=== PATIENT | female | born 1950 | race Caucasian/White ===

== ENCOUNTER 2017-01-05 11:53 | Observation (INO) | payer MEDICARE ==
[~2017-01-05] VITALS: Ht 170.2 cm; Wt 99.1 kg
[2017-01-05] VITALS (13 sets, daily range): BP systolic 171–215; BP diastolic 85–110; PULSE 72–89; RESP 13–20; O2SAT 94–98
--- NOTE | 2017-01-05 12:04 | ED.REPORT ---
HPI-Stroke / CVA Jan 05, 2017 ED Provider: The patient is a 66 year old female with history of hypertension and hyperlipidemia, who presents to the emergency department complaining of right upper extremity tingling that began last night around 2099. Her symptoms have continued this morning and she also noticed similar symptoms on the right side of her face. She felt normal yesterday evening around 1999. She was seen by her regular doctor this morning and sent to the emergency department for further evaluation. She has had a headache intermittently over the last several days. Her pain is more noticeable with activity. She denies focal weakness, lower extremity tingling, visual changes, speech changes or confusion. She does not have history of a previous stroke. Her mother has had multiple strokes, her first stroke was at age 41, and her sister had a stroke at age 69. Over the last week she noticed a few episodes of "strong palpitations." She did not notice chest pain. She has chronic diarrhea and intermittent fevers but denies any new recent illnesses. Nursing Notes Stated Complaint: STROKE SYMPTOMS Chief Complaint: Neuro Symptoms/ Deficits Nursing Notes Reviewed: Yes Allergies: Coded Allergies: doxycycline (Verified Allergy, Severe, "muscle issues, severe stomach bleeding", 01/05/17) [place] Seed (Verified Adverse Reaction, Severe, ANY SEEDS-BOWEL BLEEDING, 01/05/17) caffeine (Verified Adverse Reaction, Severe, I MAY PASS OUT; PALPITATIONS , 01/05/17) egg (Verified Adverse Reaction, Severe, UPSET STOMACH, DIARRHEA, BLEEDING , 01/05/17) nut - unspecified (Verified Adverse Reaction, Severe, BLEEDING, 01/05/17) pepper (Verified Adverse Reaction, Intermediate, BLACK PEPPER - INTERNAL BLEEDING, 01/05/17) Scheduled Levothyroxine (Levothyroxine) 200 Mcg Tablet 200 MCG PO HS (Reported) General Time Seen by Provider: 12:05 Chief Complaint Numbness (tingling) Face right, Arm right Hx Obtained From: Patient, Spouse Arrived By: Walk-in Time last known well Last night around 1999 Sudden in Onset?: Yes Symptom Duration: Since onset Progression Since Onset: Constant Severity: Current: No pain currently Severity: Maximum: No pain Pertinent Negative: Pt denies other symptoms Recent Healthcare: No recent hospitalization, Recent doctor visit Similar Sx Previous: No Risk Factors )( TPA Administration/Criteria Stroke Thrombolytic Therapy : TPA Considered: Yes TPA Administered Intravenously: No, exclusion criteria (minimal symptoms and last known normal was last night around 1999. ) NIH Stroke Scale Level of Consciousness: Alert and responsive (0) Ask Month & Age: Both questions right (0) Open/Close Eyes/Hand Environmental Quality Analyst: Performs both tasks (0) Horizontal EO Movements: None (0) Visual Garcia: No visual loss (0) Facial Palsy: Normal symmetry (0) Right Arm Motor Drift (10s): No drift 10 sec (0) Left Arm Motor Drift (10s): No drift 10 sec (0) Right Leg Motor Drift (5s): No drift 5 sec (0) Left Leg Motor Drift (5s): No drift 5 sec (0) Limb Ataxia FNF/Heel-Sinha: No ataxia (0) Sensation (Arms/Legs/Face): Pinprick less sharp (1) Language Aphasia: No aphasia, normal (0) Dysarthria: No dysarthria, normal (0) Extinction/Inattention: No exctinct/inattent (0) NIHSS Score: 1 Time NIHSS Performed: 12:09 Date NIHSS Performed: Jan 05, 2017 Past Medical History Past Medical History Diverticulitis s/p bowel resection IBS Reports: Hyperlipidemia, Hypertension, Denies: Diabetes mellitus, Stroke Past Surgical History Bowel resection Family History Mother has had multiple strokes, first stroke was at age 40. Sister had a stroke at age 69. Smoking History Never Smoker Social History Other Social History: Good social support, , Local resident Ambulatory Status Independent Review of Systems Constitutional: Reports: Fever (intermittent), Denies: Chills Ears / Nose / Throat: Denies: Nasal congestion Respiratory: Denies: Non-productive cough Cardiovascular: Reports: Palpitations GI: Reports: Diarrhea (chronic), Denies: Vomiting Skin: Denies Rash Neurologic: Reports: Headache, Numbness (tingling ), Denies: Confusion, Focal weakness, Problem walking, Slurred speech, Unable to speak, Vision change Complete sys rev & neg: except as marked. Physical Exam Initial Vital Signs Vital Signs (First) Date Time Temp Pulse Resp B/P Pulse Ox O2 Delivery O2 Flow Rate FiO2 01/05/17 11:57 36.8 72 20 214/94 97 Room Air Initial VS: Reviewed ENT: Mucous membranes moist, Conjunctiva normal, No scleral icterus Abdomen / GI: Soft, Non-tender, No guarding, No rebound, No distention Lymphatic: No lymphadenopathy Extremities: Vascular intact, Neuro intact, No swelling, No tenderness Skin: Warm, Dry, No cyanosis Psychiatric: Mood/affect normal, Behavior normal, Normal thought content General/Constitutional: Awake, Alert Head / Eyes: Atraumatic, Normocephalic, PERRL, EOMI Neck: Supple, Full range of motion, No swelling, Non-tender, No carotid bruit Respiratory / Chest: Atraumatic, Breath sounds NL, Breath sounds = bilat, No respiratory distress, No rales, No rhonchi, No wheezing Cardiovascular: Heart rate NL, Regular rhythm, Heart sounds NL, No murmurs, No rubs, Peripheral circulation NL Neurologic: Oriented X3, Speech NL, No motor deficits, CN II - XII intact, Cerebellar NL, Memory NL, Gait NL Decreased sensation localized to upper lip on the right. Her tongue deviates to the left. Interpretation & Diagnostics Lab Results Interpretation Result Diagram: 01/05/17 1230 01/05/17 1230 Test 01/05/17 12:30 01/05/17 12:42 White Blood Count 6.0th/mm3 (3.8-10.1) Red Blood Count 4.95mil/mm3 (3.90-5.20) Hemoglobin 14.8g/dL (12.0-15.6) Hematocrit 43.7% (35.0-46.0) Mean Corpuscular Volume 88.3fL (81-100) Mean Corpuscular Hemoglobin 29.9pg (27.0-35.0) Mean Corpuscular Hemoglobin Concent 33.9% (32.0-37.0) Red Cell Distribution Width 12.8% (12.3-15.4) Platelet Count 244bil/L (150-400) Neutrophils (%) (Auto) 58.6% (40-74) Lymphocytes (%) (Auto) 29.3% (14-46) Monocytes (%) (Auto) 9.3% (4-12) Eosinophils (%) (Auto) 1.8% (0-5) Basophils (%) (Auto) 0.7% (0-3) Prothrombin Time 10.5sec (8.1-12.5) Prothromb Time International Ratio 0.98ratio Sodium Level 138mEq/L (134-144) Potassium Level 4.1mEq/L (3.5-5.2) Chloride Level 100mEq/L (97-108) Carbon Dioxide Level 23mmol/L (18-29) Blood Urea Nitrogen 14mg/dL (8-27) Creatinine 0.66mg/dL (0.57-1.00) Estimat Glomerular Filtration Rate 129mL/min (>59) Glucose Level 97mg/dL (60-99) Calcium Level 8.8mg/dL (8.5-10.1) Total Bilirubin 0.3mg/dL (0.0-1.2) Aspartate Amino Transf (AST/SGOT) 19U/L (0-50) Alanine Aminotransferase (ALT/SGPT) 23U/L (0-32) Alkaline Phosphatase 85U/L (25-165) Total Protein 7.2g/dL (6.4-8.4) Albumin 4.3g/dL (3.4-5.0) Urine Color Straw (YELLOW) Urine Appearance Hazy (CLEAR,HAZY) Urine pH 6.5 (5.0-8.0) Urine Specific [place] 1.015 (1.003-1.035) Urine Protein Negativemg/dL (NEG,TRACE) Urine Glucose (UA) Negativemg/dL (NEGATIVE) Urine Ketones Negativemg/dL (NEGATIVE) Urine Occult Blood Trace (NEGATIVE) Urine Nitrite Negative (NEGATIVE) Urine Bilirubin Negative (NEGATIVE) Urine Urobilinogen Normalmg/dL (NORMAL) Urine Leukocyte Esterase Negative (NEGATIVE) Urine RBC 0-2/hpf (0-2) Urine WBC 0-5/hpf (0-5) Urine Epithelial Cells Occasional/hpf (NONE-MOD) Urine Crystals None seen (NONE SEEN) Urine Bacteria Moderate/hpf (NONE-FEW) Urine Hyaline Casts None/lpf (NONE) Urine Granular Casts None seen (NONE SEEN) Urine Waxy Casts None seen (NONE SEEN) Urine Red Blood Cell Casts None seen (NONE SEEN) Urine White Blood Cell Casts None seen (NONE SEEN) Urine Mucus None seen (None Seen) Urine Trichomonas None seen (NONE SEEN) Urine Yeast None (NONE SEEN) Urinalysis Comment None Urine Culture Reflexed Indicated ECG Interpretation Time: 12:29 Interpreted by: ED physician Normal ECG Interpretation: Normal ECG w/ rate of... (70), Normal rate, Normal sinus rhythm, No acute ischemic changes, Normal QRS, Normal axis, Normal intervals, Adequate tracing Rhythm Strip Interpretation : Rhythm Strip Interpretation: Sinus rhythm with a rate of 75 Time: 12:15 CT Head Interpretation IMPRESSION: 1. No acute intracranial process. 2. Mild atrophy and chronic microvascular ischemic changes. Dictated by: Amanda Echevarria M.D. on 01/05/2017 at 13:16 Study: Head CT no contrast Interpretation / Wet Read by: Interpret - Radiologist Re-Eval/Medical Decision Source of Hx: Old records, Family Re-Evaluation/Progress #1: Time of Eval: 12:17 Re-Evaluation/Progress Note: Discussed exam findings, diagnosis, plan for workup and admission. All questions were addressed. Re-Evaluation/Progress #2: Time of Eval: 13:30 Re-Evaluation/Progress Note: Rechecked the patient. Discussed workup results. Re-Evaluation/Progress #3: Time of Eval: 14:37 Re-Evaluation/Progress Note: Rechecked the patient. The tingling on her face has progressed and her tongue is deviated to the left. The tingling on her hand is the same. Consultation : Referral / Consult Name: Estevan Anderson MD Consulted With: Hospitalist Requested Call at: 13:31 Call Returned at: 14:52 Network Project Manager: Will see patient, Agrees with eval, Agrees with plan, Accepts admit Counseled Regarding: Diagnosis, Lab results, Need for admission Patient Discharge & Departure Impression: Primary Impression: Stroke CVA mechanism: unspecified Qualified Code: I63.9 - Cerebral infarction, unspecified Disposition: ADMITTED TO HOSPITAL Discharge Condition All VS Reviewed: Yes Condition: Stable Scribe Attestation Portions of this note were transcribed by Tamie Mejia. I, Dr. Gar personally performed the history, physical exam and medical decision-making; I reviewed and confirmed the accuracy of the information in the transcribed note. Signed by: Anup Kramer, 01/05/2017 and Zachary Chu MD Jan 05, 2017 12:04 Tamie Mejia Jan 05, 2017 12:12
[2017-01-05] MEDS ORDERED: Labetalol 5 mg/mL 4 mL Inj IV PRN (12:20)
[2017-01-05 12:42] LABS: BASOPHILS % (AUTO) 0.7 % (0-3); EOSINOPHILS % (AUTO) 1.8 % (0-5); MONOCYTES % (AUTO) 9.3 % (4-12); Mean Corpuscular Hemoglobin 29.9 pg (27.0-35.0); Mean Corpuscular Volume 88.3 fL (81-100); NEUTROPHILS % (AUTO) 58.6 % (40-74); Platelet Count 244 bil/L (150-400)
[2017-01-05 12:55] LABS: APPEARANCE,URINE HAZY (CLEAR,HAZY); COLOR,URINE STRAW (YELLOW); OCCULT BLOOD,URINE TRACE (NEGATIVE); PH,URINE 6.5 (5.0-8.0); UROBILINOGEN,URINE NORMAL (NORMAL)
--- NOTE | 2017-01-05 13:19 | DRSVH ---
PROCEDURE: CT BRAIN WITHOUT CONTRAST ([id number]) INDICATIONS: Right face numb TECHNIQUE: Noncontrast 4.5 mm thick angled axial sections acquired from the foramen magnum to the vertex, with c oronal reformats. COMPARISON: None. FINDINGS: Image quality: Excellent. CSF spaces: Basal cisterns are patent. No extra-axial fluid collections. Ventricles are normal in size and shape. Brain: No midline shift. No intracranial masses or hemorrhage. Mcnally-white matter interface is norm al. Skull and face: Calvarium and visualized facial bones are intact, without suspicious lesions. Sinuses: Visualized sinuses and mastoids are clear. IMPRESSION: 1. No acute intracranial process. 2. Mild atrophy and chronic microvascular ischemic changes. Dictated by: Amanda Echevarria M.D. on 01/05/2017 at 13:16 Approved by: Amanda Echevarria M.D. on 01/05/2017 at 13:17
[2017-01-05] MEDS ORDERED: hydrALAZINE 20 mg/mL Inj IV ONE ×2 (13:40→14:45)
[2017-01-05] MEDS ORDERED: LEVO200T6 PO (14:19)
[2017-01-05] MEDS ORDERED: Alum-Mag Hydrox-Simeth 30 mL Suspension PO PRN (14:55)
[2017-01-05] MEDS ORDERED: Labetalol 5 mg/mL 4 mL Inj IVPUSH PRN (14:55)
[2017-01-05] MEDS ORDERED: HYDROcodone-APAP 5-325 mg Tablet PO PRN (14:55)
[2017-01-05] MEDS ORDERED: Ondansetron 2 mg/mL 2 mL Inj IV PRN (14:55)
[2017-01-05] MEDS ORDERED: Polyethylene Glycol (PEG) 17 Gm Powder PO PRN (14:55)
[2017-01-05 15:21] LABS: INR 0.98 ratio
[2017-01-05 15:46] LABS: TROPONIN T < 0.010 ug/L (0.0-0.011)
[2017-01-05 15:48] LABS: Magnesium 2.3 mg/dL (1.6-2.6)
--- NOTE | 2017-01-05 16:03 | DRSVH ---
PROCEDURE: MRI STROKE PROTOCOL ([id number]) Pre- and post-contrast brain MRI, non-contrast brain MR angiogram, pre- and postcontrast neck MR dylan ogram INDICATIONS: right face weak, tongue deviation TECHNIQUE: Brain: Noncontrast axial T1 spin echo, axial T2 fast spin echo, sagittal and axial FLAIR, coronal T2 fast spin echo, axial gradient echo, axial diffusion and ADC through the brain. After the administr ation of contrast, axial 3D VIBE of the cranial vasculature and brain. Brain MRA: Non-contrast 3-D time of flight MR angiogram, with multiple xduexjo-kflokwevj-lifhrxbpks (MIP) reformats performed. Neck MRA: Axial and sagittal TruFISP through the neck. Coronal dynamic MR angiogram during administ ration of contrast in the arterial and venous phases, with 3-dimenstional rsdmshd-ecnmjgaqb-cfmzsxbhe n (MIP) reformats constructed from subtraction images. COMPARISON: [facility], CT, CT BRAIN WO CON, 01/05/2017, 12:41. FINDINGS: Image quality: Excellent. BRAIN: CSF spaces: Ventricles are normal in size and shape. Basal cisterns are patent. No extra-axial flu id collections. Brain: No intracranial bleeds or mass effects. There is mild diffuse cervical volume loss. There is a moderate degree of patchy high FLAIR signal within the periventricular and subcortical white matte r. Mcnally-white matter interface is normal. Diffusion weighted images show no acute ischemic insults. Brainstem appears normal. Normal intravascular flow voids are present. No abnormal intracranial en hancement. Skull and face: Calvarial marrow signal is normal. Orbits appear normal. Sinuses: Sinuses are moderate right mastoid fluid. Left mastoid is clear. Sinuses clear. BRAIN MR ANGIOGRAM: Anterior circulation: Intracranial internal carotid arteries are normal in size and enhancement. Th e flow within the paired anterior cerebral arteries is normal and symmetric. The flow within the mid dle cerebral arteries is normal and symmetric. The anterior communicating artery is seen. No stenos es, occlusions, or aneurysms. Posterior circulation: The visualized portions of the vertebral arteries demonstrate normal caliber, and join to form a normal appearing basilar artery. Near origins of the bilateral posterior c erebral arteries. The flow within the posterior cerebral arteries is normal and symmetric. No stenos es, occlusions, or aneurysms. NECK MR ANGIOGRAM: Carotids: Great vessels demonstrate a conventional anatomy as they arise from the aortic arch. The origins of the common carotid arteries appear patent. The calibers and courses of both common caroti d arteries are normal. Mild, roughly 10% origin stenosis involving the right internal carotid artery, which is otherwise patent. Mild, roughly 10% origin stenosis involves the left internal carotid arslan ry, which is otherwise patent. Posterior circulation: The origins of the vertebral arteries appear patent. More superior portions of both vertebral arteries demonstrate normal course and caliber, and join to form a normal appearing basilar artery. Miscellaneous: Subclavian arteries appear patent. Pre-contrast images through the neck show no soft tissue abnormalities. IMPRESSION: BRAIN MRI: 1. No acute process. No recent infarct. 2. Mild cerebral and loss. 3. Moderate white matter FLAIR signal elevation. Differential considerations include small vessel isc hemic disease, diabetes mellitus, vasculitides, and demyelinating disorders such as multiple sclerosi s. BRAIN MR ANGIOGRAM: Negative cerebral MR angiography. NECK MR ANGIOGRAM: 1. Mild bilateral internal carotid artery origin stenoses. 2. Patent bilateral vertebral arteries. The estimate of stenosis included in the report of the imaging study was calculated using the NASCET method Dictated by: Virgie Santoyo M.D. on 01/05/2017 at 15:56 Approved by: Virgie Santoyo M.D. on 01/05/2017 at 16:01
--- NOTE | 2017-01-05 16:30 | PCM.HPMED ---
Subjective Date of Service Jan 05, 2017 Primary Provider: Admitting Physician: Estevan Anderson MD Primary Care Physician: Jeanette Mejia MD Attending Physician: Estevan Anderson MD Chief Complaint: Hand and face numbness History of Present Illness: 66-year-old female with a strong family history of stroke and see ND comes in after she had some hand numbness on the right side beginning around 8:00 last night she attributed it to a new brawn perhaps a musculoskeletal issue. She woke up this morning with it but it was not quite so bad but then she started to notice also the right side of her face she was coming into town with her and they opted to come to the emergency room where stroke code was called. Patient did not get TPA was not indicated, she has hypertension here, hyperlipidemia, she is not tolerated any statin this is been tried. She also has a history of palpitations. She tells me that it has gotten worse this week she has had it worked up extensively in the past with Holter monitors and they never found anything and she is on no medications for it. So now the patient has a headache that has resolved and then when she got some blood pressure medicine I believe was hydralazine the emergency room she had nausea and vomiting to go with it. Prior to that she was feeling fine other than some progressively worsening palpitations have been going on for the last week. She has multiple drug allergies and adverse reactions to medications and therefore really is not on any. She requires brand-name thyroid medication to control her thyroid as it was quite fluctuant in the past. Review of Systems: Gen.: No fevers chills weight loss weight gain Eyes: no visual disturbances or blurring vision HEENT: No nose/throat drainage, no pain in ears or throat, no hearing loss Lymph: No lymph nodes noted Cardiac: No chest pain, orthopnea, PND, palpitations , pedal edema or dyspnea on exertion Pulmonary: no cough, wheezing or bringing up of sputum GI: No anorexia nausea vomiting blood or black in the stool : no dysuria hematuria urinary frequency or decrease in urine output Musculoskeletal: Joint swelling no joint pain no new muscle aches or back pain Neuro: No syncope, seizures no loss of consciousness no new focal weakness, numbness or tingling Psychiatric: New new anxiety insomnia or depression Endocrine: No new heat or cold intolerances polyuria or polydipsia Hematology: No lymphadenopathy or easy bleeding or bruising noted skin: No new rashes, stasis dermatitis Allergies Coded Allergies: doxycycline (Verified Allergy, Severe, "muscle issues, severe stomach bleeding", 01/05/17) [place] Seed (Verified Adverse Reaction, Severe, ANY SEEDS-BOWEL BLEEDING, 01/05/17) caffeine (Verified Adverse Reaction, Severe, I MAY PASS OUT; PALPITATIONS , 01/05/17) egg (Verified Adverse Reaction, Severe, UPSET STOMACH, DIARRHEA, BLEEDING , 01/05/17) nut - unspecified (Verified Adverse Reaction, Severe, BLEEDING, 01/05/17) pepper (Verified Adverse Reaction, Intermediate, BLACK PEPPER - INTERNAL BLEEDING, 01/05/17) Home Medications Levothyroxine (Levothyroxine) 200 Mcg Tablet 200 MCG PO HS (Reported) PMH Hypothyroidism Hx GI bleed "torn up esophagus and stomach "told never to take aspirin or NSAIDs ever again. Hx hyperlipidemia has not tolerated any medication since tried a few Diverticulitis s/p bowel resection IBS Reports: Hyperlipidemia, Hypertension, Denies: Diabetes mellitus, Stroke Past Surgical History Bowel resection status post diverticulosis and GI bleed Hx cholecystectomy Hx appendectomy Hx incisional hernia repair Hx hysterectomy neck Hx breast cyst removed Hx right flank cyst sounds like a lipoma removed from under the skin" very large Numerous bilateral foot procedures Family History-strong family history for CVA and heart disease Mother has had multiple strokes, first stroke was at age 40. Sister had a stroke at age 69. Her father had ND at 42, sister's at 68 and 67 and a brother at age 55 multiple grandparents with MIs Smoking History Never Smoker Social History Other Social History: Good social support, , Local resident Ambulatory Status Independent Social History Hx Alcohol Use: No Hx Substance Use: No Smoking Status: Never Smoker Exam Vital Signs Vital Sign - Last Date Time Temp Pulse Resp B/P Pulse Ox O2 Delivery O2 Flow Rate FiO2 01/05/17 16:19 81 15 171/95 95 01/05/17 16:01 Room Air 01/05/17 11:57 36.8 Exam Gen.- A+ O 3 no apparent distress. Eyes- open conjunctiva clear, pupils equal nonicteric Mouth- oral mucosa moist, no exudate ENT- ears normal, nose normal Neck- supple/trach midline CVS- RRR no murmur or gallop Lungs- CTA GI- NABS/NT soft Musc- moving 4 no obvious deformity Neuro- cranial nerves II through XII intact to gross examination, nonfocal Skin- warm and dry, no rashes/lesions/wounds noted Psych- pleasant and appropriate, Lab and Diagnostics Result Diagram: 01/05/17 1230 01/05/17 1230 X-Rays, CTs and MRIs BRAIN MRI: 1. No acute process. No recent infarct. 2. Mild cerebral and loss. 3. Moderate white matter FLAIR signal elevation. Differential considerations include small vessel ischemic disease, diabetes mellitus, vasculitides, and demyelinating disorders such as multiple sclerosis. BRAIN MR ANGIOGRAM: Negative cerebral MR angiography. NECK MR ANGIOGRAM: 1. Mild bilateral internal carotid artery origin stenoses. 2. Patent bilateral vertebral arteries. The estimate of stenosis included in the report of the imaging study was calculated using the NASCET method Dictated by: Virgie Santoyo M.D. on 01/05/2017 at 15:56 12-lead ECG Normal rate with QTC of [address] segment changes reviewed by me Assessment & Plan 66-year-old female being admitted for CVA/TIA workup #Right facial and hand numbness-MRI shows no acute CVA possible enhancement consistent with MS. Right now hand numbness and right facial numbness are resolving. -Echocardiogram, telemetry, PT/OT/swallow eval all ordered -Patient does not tolerate aspirin so were starting Plavix -Patient has not tolerate statins so we are giving a trial of pravastatin #HTN-permissive hypertension labetalol when necessary SBP greater than 220 ordered #Hyperlipidemia-trial pravastatin, she has failed multiple other statins due to adverse reactions #Multiple allergies-patient has multiple sensitivities and does not tolerate medications well #Hypothyroidism-patient requires her own from home brand name otherwise it is not well regulated #Full code #DVT prophylaxis with SCDs and enoxaparin, GI prophylaxis not indicated Estevan Anderson MD Jan 05, 2017 16:30
[2017-01-05] MEDS: 0.9% Sodium Chloride 1,000 ML IV SCH (16:50)
[2017-01-06] MEDS: 0.9% Sodium Chloride 1,000 ML IV SCH ×2 (01:28→09:47)
[2017-01-06 01:33] VITALS: BP 171/81; PULSE 71; RESP 16; O2SAT 94
[2017-01-06 05:56] VITALS: BP 168/88; PULSE 75; RESP 16; O2SAT 94
[2017-01-06 09:56] VITALS: BP 183/86; PULSE 85; RESP 18; O2SAT 94
[2017-01-06 10:38] VITALS: PULSE 79
[2017-01-06 13:47] VITALS: BP 161/83; PULSE 74; RESP 14; O2SAT 93
--- NOTE | 2017-01-06 14:33 | DRSVH ---
[facility] [address] [place] [address] Echocardiogram Report Name: YUN RUSHING Date: Height: 67 in Hospital Exam Location: [facility] Weight: 218 lb Gender: Female BSA: 2.1 m2 : 1950 Age: 66 yrs BP: 168/88 mmHg Reason For Study: CVA Ordering Physician: Performed By: Nancie Talavera HOSPITALIST [facility] Interpretation Summary 1. Normal left ventricular size with moderately increased wall thickness and normal systolic function. The estimated EF of 60-65% 2. Normal right ventricular size and systolic function. 3. No evidence for significant valvular pathology There is no old study for comparison Procedure: A two-dimensional transthoracic echocardiogram with color flow and Doppler was performed. The study quality was technically adequate. There is no prior echocardiogram noted for this patient. The patient was in normal sinus rhythm during the exam. The patient had occasional PVCs during the exam. Left Ventricle: Left ventricular wall thickness is moderately increased. The left ventricle is normal in size. Mildly elevated outflow tract velocities. The ejection fraction is estimated to be 60-65%. No obvious wall motion abnormalities. Assessment of diastolic parameters indicates normal left ventricular diastolic function and normal filling pressures. Right Ventricle: The right ventricle is normal size. The right ventricular systolic function is normal. Atria: The left atrium is mildly dilated. Right atrial size is normal. No color doppler evidence for an ASD. Mitral Valve: The mitral valve is normal in structure and function. There is no mitral regurgitation noted. Aortic Valve: The aortic valve opens well. Not optimally visualized. No aortic regurgitation is present. Tricuspid Valve: The tricuspid valve is not well visualized, but is grossly normal. There is trace tricuspid regurgitation. The right ventricular systolic pressure is estimated at 32 mmHg assuming a right atrial pressure of 8 mm Hg. Pulmonic Valve: The pulmonic valve is not well seen, but is grossly normal. Great Vessels: The aortic root is normal size. The ascending aorta is normal in size. The aortic arch is normal in size. The IVC is of normal diameter and collapses less than 50% with a sniff. This suggests a right atrial pressure of 8 mm Hg. Pericardium/ Pleura There is no pericardial effusion. MMode/2D Measurements & Calculations LVIDd: 4.0 cm LA dimension RA long axis LVOT diam: 2.2 cm EPSS: 0.90 cm Ao root diam: 3.2 cm IVSd: 1.5 cm LA A2 area RA area Aortic Jxn: 2.6 cm LVPWd: 1.6 cm asc Aorta Diam : 19.5 cm LA A4 area RA vol: 56.9 mlAo Arch Diam (Prox RA Trans): 2.6 cm LA length (vol) : 27.1 mm2 LA vol: 76.5 ml LA vol index IVC diam: 1.4 cm LV mcelroy. diameter/BSA RVD1 (basal) (cm/m^2): 1.9 Doppler Measurements & Calculations Ao V2 max MV E max jermaine MV E/A: 0.91 TR max jermaine : 157.4 cm/sec : 81.9 cm/sec Med Peak E' Jermaine : 244.5 cm/sec Ao max PG MV A max jermaine TR max PG : 9.9 mmHg : 89.6 cm/sec E/E' med: 11.3 : 23.9 mmHg Ao mean PG MV P1/2t: 73.6 msec Lat Peak E' Jermaine PA V2 max : 99.6 cm/sec LVOT Max Jermaine E/E' lat: 12.0 PA mean PG : 115.0 cm/sec E/e' average: 11.6 Pulm A Revs Dur PA Accel Time LIGIA(I,D): 2.8 cm : 0.13 sec sev ratio MV A dur: 0.12 sec MV dec time MV P1/2t max jermaine Ao V2 mean LV V1 max PG : 0.25 sec : 116.0 cm/sec MVA(P1/2t): 3.0 cm2 Ao V2 VTI: 32.2 cm LV V1 VTI LIGIA(V,D): 2.7 cm2 : 24.0 cm PA V2 mean LIGIA indexed to CASA Shay Dur - MV A : 69.2 cm/sec (cm^2/m^2): 1.3 Dur: -0.01 msec Reading Physician:02:32 PM
[2017-01-06] MEDS ORDERED: METO-272 PO (15:36)
[2017-01-06] MEDS ORDERED: CLOP75TA28 PO (15:36)
[2017-01-06] MEDS ORDERED: PRA20 PO (15:36)
--- NOTE | 2017-01-06 15:43 | PCM.DC.MED ---
Discharge Summary Date of Service Jan 06, 2017 Dates of Hospitalization Date of Hospital Admission Jan 05, 2017 at 15:07 Date of Discharge: Jan 06, 2017 Providers: Admitting Physician: Silvino Anderson MD Primary Care Physician: Jeanette Mejia MD Attending Physician: Silvino Anderson MD Diagnosis at Time of Discharge Diagnosis at Time of Discharge TIA Procedures XRay, CTs & MRIs BRAIN MRI: 1. No acute process. No recent infarct. 2. Mild cerebral and loss. 3. Moderate white matter FLAIR signal elevation. Differential considerations include small vessel ischemic disease, diabetes mellitus, vasculitides, and demyelinating disorders such as multiple sclerosis. BRAIN MR ANGIOGRAM: Negative cerebral MR angiography. NECK MR ANGIOGRAM: 1. Mild bilateral internal carotid artery origin stenoses. 2. Patent bilateral vertebral arteries. The estimate of stenosis included in the report of the imaging study was calculated using the NASCET method Dictated by: Virgie Santoyo M.D. on 01/05/2017 at 15:56 ECG 12 Lead Normal rate with QTC of [address] segment changes reviewed by me Cardiac Echo Impression Normal with minimal valvular pathology 01/06 Brief History 66-year-old female with a strong family history of stroke and see SC comes in after she had some hand numbness on the right side beginning around 8:00 last night she attributed it to a new braw perhaps a musculoskeletal issue. She woke up this morning with it but it was not quite so bad but then she started to notice also the right side of her face she was coming into town with her and they opted to come to the emergency room where stroke code was called. Hospital Course 66-year-old female being admitted for CVA/TIA workup. Workup was unrevealing. There may have been some white matter flares on the MRI suggestive of possible MS. While the patient was here her symptoms dissipated. I started her on Plavix due to the fact that she has had GI bleeding with aspirin and was agreeable to trying Plavix even though it would cost more. I started her on pravastatin she has had adverse reactions to multiple statins but her tolerated pravastatin so she was agreeable to trying that. She is hypertensive systolic BP ran from 160-190 while she was here with heart rate in the 70s sewing starting her on Toprol-XL 50 mg daily for ease of taking it. #Right facial and hand numbness-MRI shows no acute CVA possible enhancement consistent with MS. Right now hand numbness and right facial numbness are resolving. -Echocardiogram, telemetry, PT/OT/swallow eval all ordered -Patient does not tolerate aspirin so were starting Plavix -Patient has not tolerate statins so we are giving a trial of pravastatin -Failed her swallow eval because tongue deviated off to the left this intermittently occurred throughout the stay but she passed her formal swallow evaluation with speech well as physical therapy evaluation. #HTN-permissive hypertension labetalol when necessary SBP greater than 220 ordered #Hyperlipidemia-trial pravastatin, she has failed multiple other statins due to adverse reactions #Multiple allergies-patient has multiple sensitivities and does not tolerate medications well #Hypothyroidism-patient requires her own from home brand name otherwise it is not well regulated #Full code #DVT prophylaxis with SCDs and enoxaparin, GI prophylaxis not indicated Patient's being discharged home with new prescriptions for metoprolol, pravastatin, clopidogrel in addition to her Levoxyl. She needs referrals to neurology to follow up on these abnormalities and to see how she is doing and make commentary on with this patient needs to be continued on clopidogrel or whether this could be discontinued and/or whether MS is a possibility in this setting or if there is just some sort of peripheral neuropathy. She needs a referral for new primary care provider in the area. A referral to a tube heater also might not be a terrible plan given her strong family history of cardiac events. Exam Vital Signs (Last) Date Time Temp Pulse Resp B/P Pulse Ox O2 Delivery O2 Flow Rate FiO2 01/06/17 13:47 36.7 74 14 161/83 93 Room Air Test 01/05/17 12:30 01/05/17 12:42 White Blood Count 6.0th/mm3 (3.8-10.1) Red Blood Count 4.95mil/mm3 (3.90-5.20) Hemoglobin 14.8g/dL (12.0-15.6) Hematocrit 43.7% (35.0-46.0) Mean Corpuscular Volume 88.3fL (81-100) Mean Corpuscular Hemoglobin 29.9pg (27.0-35.0) Mean Corpuscular Hemoglobin Concent 33.9% (32.0-37.0) Red Cell Distribution Width 12.8% (12.3-15.4) Platelet Count 244bil/L (150-400) Neutrophils (%) (Auto) 58.6% (40-74) Lymphocytes (%) (Auto) 29.3% (14-46) Monocytes (%) (Auto) 9.3% (4-12) Eosinophils (%) (Auto) 1.8% (0-5) Basophils (%) (Auto) 0.7% (0-3) Prothrombin Time 10.5sec (8.1-12.5) Prothromb Time International Ratio 0.98ratio Sodium Level 138mEq/L (134-144) Potassium Level 4.1mEq/L (3.5-5.2) Chloride Level 100mEq/L (97-108) Carbon Dioxide Level 23mmol/L (18-29) Blood Urea Nitrogen 14mg/dL (8-27) Creatinine 0.66mg/dL (0.57-1.00) Estimat Glomerular Filtration Rate 129mL/min (>59) Glucose Level 97mg/dL (60-99) Hemoglobin A1c 5.7% (4.8-5.6) Calcium Level 8.8mg/dL (8.5-10.1) Magnesium Level 2.3mg/dL (1.6-2.6) Total Bilirubin 0.3mg/dL (0.0-1.2) Aspartate Amino Transf (AST/SGOT) 19U/L (0-50) Alanine Aminotransferase (ALT/SGPT) 23U/L (0-32) Alkaline Phosphatase 85U/L (25-165) Troponin T < 0.010ug/L (0.0-0.011) Total Protein 7.2g/dL (6.4-8.4) Albumin 4.3g/dL (3.4-5.0) Triglycerides Level 387mg/dL (0-149) Cholesterol Level 279mg/dL (100-199) LDL Cholesterol, Calculated 160.600mg/dL (0-99) VLDL Cholesterol 77.400mg/dL HDL Cholesterol 41mg/dL (>39) Cholesterol/HDL Ratio 6.80 (0.0-4.4) Thyroid Stimulating Hormone (TSH) 0.466uIU/mL (0.450-4.500) Urine Color Straw (YELLOW) Urine Appearance Hazy (CLEAR,HAZY) Urine pH 6.5 (5.0-8.0) Urine Specific [place] 1.015 (1.003-1.035) Urine Protein Negativemg/dL (NEG,TRACE) Urine Glucose (UA) Negativemg/dL (NEGATIVE) Urine Ketones Negativemg/dL (NEGATIVE) Urine Occult Blood Trace (NEGATIVE) Urine Nitrite Negative (NEGATIVE) Urine Bilirubin Negative (NEGATIVE) Urine Urobilinogen Normalmg/dL (NORMAL) Urine Leukocyte Esterase Negative (NEGATIVE) Urine RBC 0-2/hpf (0-2) Urine WBC 0-5/hpf (0-5) Urine Epithelial Cells Occasional/hpf (NONE-MOD) Urine Crystals None seen (NONE SEEN) Urine Bacteria Moderate/hpf (NONE-FEW) Urine Hyaline Casts None/lpf (NONE) Urine Granular Casts None seen (NONE SEEN) Urine Waxy Casts None seen (NONE SEEN) Urine Red Blood Cell Casts None seen (NONE SEEN) Urine White Blood Cell Casts None seen (NONE SEEN) Urine Mucus None seen (None Seen) Urine Trichomonas None seen (NONE SEEN) Urine Yeast None (NONE SEEN) Urinalysis Comment None Urine Culture Reflexed Indicated Discharge Medications Discharge Medications Clopidogrel (Clopidogrel) 75 Mg Tablet 75 MG PO DAILY Prescribed by: SILVINO ANDERSON MD Levothyroxine (Levothyroxine) 200 Mcg Tablet 200 MCG PO HS (Reported) Metoprolol Succinate ER (Metoprolol Succinate ER) 50 Mg Tab.er.24h 50 MG PO DAILY Prescribed by: SILVINO ANDERSON MD Pravastatin (Pravachol) 20 Mg Tablet 40 MG PO HS Prescribed by: SILVINO ANDERSON MD Followup Plan Disposition: Home Follow-up plan Needs referral for new primary care provider and area as well as a neurology follow-up next available Discharge Diet: Heart Healthy Follow-up with PCP in: Other (Right or TAMMY for blood pressure and med reactions) Follow-up in: Other (neurology to follow up on neurologic events as described above next available) Silvino Anderson MD Jan 06, 2017 15:43
--- NOTE | 2017-01-06 16:13 | PCM.DIMED ---
Discharge Instructions Date of Service Jan 06, 2017 Dates of Hospitalization Jan 05, 2017 at 15:07 Discharge Diagnosis Discharge Diagnosis TIA Diet Heart Healthy Patient Instructions Follow-up plan Needs referral for new primary care provider and area as well as a neurology follow-up next available Follow-up with PCP in: Other (Right or TAMMY for blood pressure and med reactions) Follow-up in: Other (neurology to follow up on neurologic events as described above next available) Estevan Anderson MD Jan 06, 2017 16:13
== END 2017-01-06 17:12 | disposition home or self-care (01) ==
LOC: SED 11:53 → MPC 15:07
PROVIDERS: ADMIT Hospitalist; ATTEND Hospitalist
DX: G45.9 Transient cerebral ischemic attack, unspecified (principal); R20.0 Anesthesia of skin; E03.9 Hypothyroidism, unspecified; E78.5 Hyperlipidemia, unspecified; K58.9 Irritable bowel syndrome, unspecified; K57.30 Diverticulosis of large intestine without perforation or abscess without bleeding; Z79.899 Other long term (current) drug therapy

== ENCOUNTER 2017-04-03 09:16 | Emergency (ER) | payer MEDICARE ==
[~2017-04-03] VITALS: Ht 170.2 cm; Wt 100.9 kg
[~2017-04-03 09:16] MED LIST: CLOP75TA28 PO; LEVO200T6 PO; METO-272 PO; PRA20 PO
[2017-04-03 09:19] VITALS: BP 186/97; PULSE 78; RESP 18; O2SAT 99
--- NOTE | 2017-04-03 09:29 | ED.REPORT ---
HPI-Abd Pain M 40 and Over Date of Service Apr 03, 2017 ED Provider: oFster Jimenez DO 66 y/o female with a hx of hypothyroid, diverticulitis, nephrolithiasis, HTN and COPD presents to the ED complaining of worsening right side abdominal pain, onset yesterday. The pt states "I thought I pulled a muscle climbing out of the truck yesterday. I put my hand on the handle at the top and tried to get off and got this horrible burning pain on the right side." Her pain is exacerbated when leaning forward or taking a deep breath. She denies flank pain, fever, cough, vomiting and dysuria. She is currently also experiencing diarrhea but associates that to her diverticulitis. The pt has a hernia mesh at the location of the pain, which has once ripped in the past. Nursing Notes Stated Complaint: RIGHT ABDOMINAL PAIN Chief Complaint: Female Abdominal Pain Nursing Notes Reviewed: Yes Allergies: Coded Allergies: doxycycline (Verified Allergy, Severe, "muscle issues, severe stomach bleeding", 01/05/17) Creek Seed (Verified Adverse Reaction, Severe, ANY SEEDS-BOWEL BLEEDING, 01/05/17) caffeine (Verified Adverse Reaction, Severe, I MAY PASS OUT; PALPITATIONS , 01/05/17) egg (Verified Adverse Reaction, Severe, UPSET STOMACH, DIARRHEA, BLEEDING , 01/05/17) nut - unspecified (Verified Adverse Reaction, Severe, BLEEDING, 01/05/17) raw vegetable (Verified Adverse Reaction, Severe, intestinal pains, bleeding, 01/05/17) Diverticulitis pepper (Verified Adverse Reaction, Intermediate, BLACK PEPPER - INTERNAL BLEEDING, 01/05/17) Uncoded Allergies: LEBATALOL (Allergy, Severe, Hives/Nausea, 04/03/17) Fruits (Adverse Reaction, Intermediate, diarrhea, intestinal swelling, bleeding, 01/05/17) diverticulitis MSG (Adverse Reaction, Intermediate, Diarrhea and bloating, 01/05/17) Scheduled Amoxicillin/Clav K 875-125 mg (Augmentin 875-125 mg) 1 Each Tablet 1 TABLET PO BID Clopidogrel (Clopidogrel) 75 Mg Tablet 75 MG PO DAILY Levothyroxine (Levothyroxine) 200 Mcg Tablet 200 MCG PO HS Metoprolol Succinate ER (Metoprolol Succinate ER) 50 Mg Tab.er.24h 50 MG PO DAILY Pravastatin (Pravachol) 20 Mg Tablet 40 MG PO HS Scheduled PRN Hydrocodone-Acetaminophen 5-325 mg (Hydrocodone-Acetaminophen 5-325 mg) 1 Each Tablet 1 TABLET PO Q4H PRN PRN For Pain General Time Seen by MD: 09:27 Chief Complaint Abdominal pain (right side) Hx Obtained From: Patient Arrived By: Walk-in Sudden in Onset?: Yes Onset Occurred: Yesterday Symptom Duration: Since onset Location: : RLQ Quality: Burning Radiation: : Does not radiate Severity: Current: Severe Severity: Maximum: Severe Recent Healthcare: No recent doctor visit Similar Sx Previous: No Past Medical History Past Medical History Diverticulitis s/p bowel resection IBS Nephrolithiasis Arthritis Psoriasis in the back of her head Reports: COPD, Hyperlipidemia, Hypertension Reports: Thyroid disease (hypothyroid) Past Surgical History Bowel resection Breast cyst removal Abdominal cyst removal Hernia x2 Reports: Appendectomy, Cholecystectomy Family History Mother has had multiple strokes, first stroke was at age 40. Sister had a stroke at age 69. Smoking History Never Smoker Social History Other Social History: Good social support, , Local resident Ambulatory Status Independent Review of Systems Constitutional: Denies: Fever Respiratory: Denies: Non-productive cough GI: Reports: Abdominal pain (right sided), Denies: Vomiting Male: Denies Dysuria, Denies Flank pain Complete sys rev & neg: except as marked. Physical Exam Initial Vital Signs Vital Signs (First) Date Time Temp Pulse Resp B/P Pulse Ox O2 Delivery O2 Flow Rate FiO2 04/03/17 09:19 37.5 78 18 186/97 99 Room Air Initial VS: Reviewed Head / Eyes: Atraumatic, Normocephalic Neck: Full range of motion Extremities: Vascular intact, Neuro intact, No swelling, No tenderness Skin: Warm, Dry, No cyanosis Neurologic: Alert, Oriented, Nonfocal General/Constitutional: Awake, Alert, Cooperative Distress / Hydration: Positive: Distress mild Respiratory / Chest: Atraumatic, Breath sounds NL, No respiratory distress, No wheezing Cardiovascular: Heart rate NL, Regular rhythm, Peripheral circulation NL Hypertensive Abdomen: Atraumatic, Soft, No guarding, No rebound Tenderness/Guarding/Rebound: Positive: Tender RLQ... (Mild) Back: Atraumatic, Full range of motion, Painless range of motion Interpretation & Diagnostics Lab Results Interpretation Result Diagram: 04/03/17 0950 04/03/17 0950 Test 04/03/17 09:35 04/03/17 09:50 Hold Urine Received (Received) White Blood Count 14.2th/mm3 (3.8-10.1) Red Blood Count 5.08mil/mm3 (3.90-5.20) Hemoglobin 15.0g/dL (12.0-15.6) Hematocrit 46.3% (35.0-46.0) Mean Corpuscular Volume 91.1fL (81-100) Mean Corpuscular Hemoglobin 29.5pg (27.0-35.0) Mean Corpuscular Hemoglobin Concent 32.4% (32.0-37.0) Red Cell Distribution Width 12.9% (12.3-15.4) Platelet Count 257bil/L (150-400) Neutrophils (%) (Auto) 80.0% (40-74) Lymphocytes (%) (Auto) 11.4% (14-46) Monocytes (%) (Auto) 7.6% (4-12) Eosinophils (%) (Auto) 0.6% (0-5) Basophils (%) (Auto) 0.2% (0-3) Sodium Level 140mEq/L (134-144) Potassium Level 3.5mEq/L (3.5-5.2) Chloride Level 99mEq/L (97-108) Carbon Dioxide Level 26mmol/L (18-29) Blood Urea Nitrogen 11mg/dL (8-27) Creatinine 0.66mg/dL (0.57-1.00) Estimat Glomerular Filtration Rate 129mL/min (>59) Glucose Level 103mg/dL (60-99) Lactic Acid Level 1.4mmol/L (0.4-2.0) Calcium Level 9.4mg/dL (8.5-10.1) Magnesium Level 2.1mg/dL (1.6-2.6) Total Bilirubin 0.5mg/dL (0.0-1.2) Aspartate Amino Transf (AST/SGOT) 19U/L (0-50) Alanine Aminotransferase (ALT/SGPT) 22U/L (0-32) Alkaline Phosphatase 105U/L (25-165) Total Protein 7.8g/dL (6.4-8.4) Albumin 4.3g/dL (3.4-5.0) Lipase 35U/L (13-60) Lab Results Interpretation: Urine Dipstick: Trace blood, otherwise normal. ECG Interpretation ECG Interpretation: Normal sinus rhythm. Rate 71. Time: 10:07 Interpreted by: ED physician Normal ECG Interpretation: No change from prior ECGs (01/05/17) CT Abd / Pelvis Interpretation IMPRESSION: Diverticulitis appears present as the likely cause of the mural thickening involving a short segment of the colon at the right upper quadrant, proximal transverse colon. A peridiverticular abscess is not found. Diverticulosis is present elsewhere without acute diverticulitis. Please note that this study was ordered as a pelvic CT, but fortunately distally includes extension of the study to the inferior margin of the gallbladder or the inflammatory process is present. The full abdomen is not included on this study, and the inflammatory process at the right upper quadrant portion of the colon is at the upper imaging margin. Additional delayed CT scanning of the abdomen may be warranted if there are clinical concerns that abscess could be present more superiorly in the perihepatic space. Dictated by: Mohan Kendall M.D. on 04/03/2017 at 11:18 Approved by: Mohan Kendall M.D. on 04/03/2017 at 11:29 Study type: Abdominal CT IV contrast Interpretation / Wet Read by: Interpret - Radiologist Re-Eval/Medical Decision Med Decision/Clinical Course Diverticulitis without abscess, patient will be discharged on Augmentin. And follow-up precautions given. Source of Hx: Old records Time of Eval: 11:47 Patient Status: Condition improved Re-Evaluation/Progress Note: Rechecked pt. Discussed lab results, imaging results, diagnosis and plan to discharge. Pt understands and agrees with the plan. F/U instructions and RTER warning given. All questions addressed. Counseled Regarding: Diagnosis, Lab results, Need for follow-up, When/why to return to ED Discharge & Departure Primary Impression: Diverticulitis Diverticulitis site: large intestine Disposition: Home Vital Signs - All Vital Signs Date Time Temp Pulse Resp B/P Pulse Ox O2 Delivery O2 Flow Rate FiO2 04/03/17 12:12 66 14 151/85 97 Room Air 04/03/17 12:11 66 14 151/85 97 Room Air 04/03/17 11:30 66 14 179/84 97 Room Air 04/03/17 10:19 66 16 149/71 96 Room Air 04/03/17 10:07 72 13 169/74 96 Room Air 04/03/17 09:19 37.5 78 18 186/97 99 Room Air )( All Prior VS Reviewed: Yes Condition: Stable Additional Instructions: You have diverticulitis. Take Augmentin as prescribed. Use Vicodin as needed for pain. Be sure not to take extra Tylenol when you are using Vicodin. Follow -up with your regular doctor in the next few days or return to the ER as needed if worse. Referrals: LOLLY AKINS MD (PCP) Scribe Attestation Portions of this note were transcribed by Prince Menjivar. I, , personally performed the history, physical exam and medical decision-making;I reviewed and confirmed the accuracy of the information in the transcribed note. Signed by Anup Hernandez. 04/03/17 11:57 copies to: LOLLY AKINS MD, Timothy S DO Apr 03, 2017 09:29 Prince Menjivar Apr 03, 2017 09:37
[2017-04-03] MEDS ORDERED: HYDROmorphone 0.5 mg/0.5 mL iSecure Syringe IVPUSH PRN (09:35)
[2017-04-03] MEDS ORDERED: Ondansetron 2 mg/mL 2 mL Inj IVPUSH PRN (09:35)
[2017-04-03] MEDS ORDERED: 0.9% Sodium Chloride 1,000 ML IV ONE (09:35)
[2017-04-03 10:07] VITALS: BP 169/74; PULSE 72; RESP 13; O2SAT 96
[2017-04-03 10:11] LABS: BASOPHILS % (AUTO) 0.2 % (0-3); EOSINOPHILS % (AUTO) 0.6 % (0-5); MONOCYTES % (AUTO) 7.6 % (4-12); Mean Corpuscular Hemoglobin 29.5 pg (27.0-35.0); Mean Corpuscular Volume 91.1 fL (81-100); Platelet Count 257 bil/L (150-400)
[2017-04-03 10:19] VITALS: BP 149/71; PULSE 66; RESP 16; O2SAT 96
[2017-04-03 10:35] LABS: Magnesium 2.1 mg/dL (1.6-2.6)
[2017-04-03 11:30] VITALS: BP 179/84; PULSE 66; RESP 14; O2SAT 97
--- NOTE | 2017-04-03 11:31 | DRSVH ---
PROCEDURE: CT PELVIS WITH CONTRAST ([id number]) INDICATIONS: sudden onset sharp abd pain, hypertensive TECHNIQUE: After the administration of intravenous contrast, 5 mm thick sections acquired from the iliac crests to the symphysis. 5 mm coronal and sagittal reformats were acquired. For radiation dose reduction, the following was used: automated exposure control, adjustment of mA and/or kV according to patient size. COMPARISON: None. FINDINGS: Image quality: Excellent. Peritoneum and bowel: Bowel loops demonstrate normal wall thickness and caliber except that the righ t upper quadrant where a single segment of the colon demonstrates pericolonic edema and mural thicken ing with the wall thickness of the colon in this area measuring up to 1.1-1.2-1.4 cm. Immediately ad jacent there are diverticula that appear inflamed especially anteriorly where a diverticulum abuts th e peritoneal margin in an area of presumed prior surgical change (series 5, image 5). No peridiverti cular abscess, no free fluid or air. Genitourinary: Bladder wall thickness is normal. Nodes and vessels: No iliac, pelvic, or inguinal adenopathy by size criteria. Iliac vessels demonst rate normal size and enhancement. Bones: No suspicious bony lesions. Miscellaneous: No inguinal hernias. IMPRESSION: Diverticulitis appears present as the likely cause of the mural thickening involving a sh ort segment of the colon at the right upper quadrant, proximal transverse colon. A peridiverticular abscess is not found. Diverticulosis is present elsewhere without acute diverticulitis. Please note that this study was ordered as a pelvic CT, but fortunately distally includes extension o f the study to the inferior margin of the gallbladder or the inflammatory process is present. The fu ll abdomen is not included on this study, and the inflammatory process at the right upper quadrant po rtion of the colon is at the upper imaging margin. Additional delayed CT scanning of the abdomen may be warranted if there are clinical concerns that abscess could be present more superiorly in the per ihepatic space. Dictated by: Mohan Kendall M.D. on 04/03/2017 at 11:18 Approved by: Mohan Kendall M.D. on 04/03/2017 at 11:29
[2017-04-03] MEDS ORDERED: AMOX-366 PO (11:52)
[2017-04-03] MEDS ORDERED: HYDR-4003 PO (11:52)
[2017-04-03] MEDS ORDERED: Amoxicillin-Clav 875-125 mg Tablet PO ONE (11:55)
[2017-04-03] MEDS ORDERED: HYDROcodone-APAP 5-325 mg Tablet PO ONE (11:55)
[2017-04-03 12:11] VITALS: BP 151/85; PULSE 66; RESP 14; O2SAT 97
[2017-04-03 12:12] VITALS: BP 151/85; PULSE 66; RESP 14; O2SAT 97
== END 2017-04-03 12:19 | disposition home or self-care (01) ==
LOC: SED 09:16
DX: K57.32 Diverticulitis of large intestine without perforation or abscess without bleeding (principal); E03.9 Hypothyroidism, unspecified; I10 Essential (primary) hypertension; J44.9 Chronic obstructive pulmonary disease, unspecified; K58.9 Irritable bowel syndrome, unspecified; E78.5 Hyperlipidemia, unspecified; Z87.442 Personal history of urinary calculi; Z90.49 Acquired absence of other specified parts of digestive tract; Z96.89 Presence of other specified functional implants; Z88.1 Allergy status to other antibiotic agents; Z88.8 Allergy status to other drugs, medicaments and biological substances
CPT/HCPCS: 36415; 71275; 72193; 74175; 80053; 83605; 83690; 83735; 85025; 93005; 96361; 96374; 96375; 99285; J1170; J2405; J7030; Q9967